=== PATIENT | male | born 2000 | race Hispanic/Latino ===

== ENCOUNTER 2024-04-06 00:45 | Emergency (ER) | payer BC ==
[~2024-04-06] VITALS: Ht 185.4 cm; Wt 111.1 kg
[2024-04-06] MEDS ORDERED: LIDOCAINE HCL 1% 20 ML VIAL ONE (01:36)
--- NOTE | 2024-04-06 01:45 | NUR ---
SPLINT APPLIED ORDRED
[2024-04-06] MEDS ORDERED: MELO-108 PO (02:17)
[2024-04-06] MEDS ORDERED: HYDR-4060 PO (02:17)
--- NOTE | 2024-04-06 02:19 | ERN ---
General Chief Complaint: Wrist Pain/Injury Stated Complaint: C/O PAIN TO RIGHT WRIST/HAND AFTER HITTING WALL Time Seen by MD: 00:53 History of Present Illness Initial Comments 23-year-old male otherwise healthy presents for right hand injury after hitting a wall. Obvious deformity 4th and 5th metacarpals otherwise no acute abnormalities. Allergies: Coded Allergies: No Known Allergies (Unverified Allergy, Unknown, 04/06/24) Home Meds Active Scripts Hydrocodone/Acetaminophen (Hydrocodon-Acetaminophen 5-325) 5 Mg-325 Mg Tablet, 1-2 TAB PO TIDP PRN for pain for 5 Days, #15 TAB 0 Refills Prov:MARI ROLLE DO 04/06/24 Meloxicam (Meloxicam) 15 Mg Tablet, 1 TAB PO DAILY for 10 Days, #10 TAB 0 Refills Prov:MARI ROLLE DO 04/06/24 Past Medical History Past Medical History: No Pertinent History Past Surgical History: None ROS Dictation CONSTITUTIONAL: No chills, no fever, no weakness, no diaphoresis, no malaise. HEAD/FACE: No signs of trauma. EENT: No eye pain, no blurred vision, no tearing, no double vision, no ear pain, no ear discharge, no nose pain, no nasal congestion, no throat pain, no throat swelling, no mouth pain. RESPIRATORY: No cough, no orthopnea, no SOB, no stridor, no wheezing. CARDIOVASCULAR: No chest pain, no edema, no palpitations, no syncope. GASTROINTESTINAL/ABDOMINAL: No abdominal pain, no constipation, no diarrhea, no nausea, no vomiting. GENITOURINARY: No abnormal discharge, no dysuria, no frequent urination, no hematuria. No complaints of pain in the genitals. MUSCULOSKELETAL: Right hand pain INTEGUMENTARY: No change in color, no change in hair/nails, no dryness, no lesion, no lumps, no rash. NEUROLOGICAL/PSYCH: No anxiety, not depressed, no emotional problem, no headache, no numbness, no pre-existing deficit, no history of seizures, no tremors, no weakness. HEMATOLOGIC/LYMPHATIC: Not anemic, no history of blood clots, no apparent bleeding, no bruising, glands not swollen. All Systems Negative, Except as Noted. Physical Exam Physical Exam Dictation VITAL SIGNS: Reviewed. GENERAL APPEARANCE: Alert, oriented x3, no acute distress HEAD AND FACE: Non-traumatic. EYES: PERRL, pink conjunctivas, eyelid no trauma, anterior chamber clear. EARS: Pinnas intact and no signs of trauma or erythema. Ear canals clear and no discharge. TMs no erythema. NOSE: No discharge, no bleeding. OROPHARYNX: Mouth normal, teeth no caries, tongue pink. Pharynx clear, no erythema. Tonsils no exudates, no abscesses noted. Mucous membrane moist. NECK: Supple, non-tender, no thyromegaly, no masses, no JVD, no bruits. BREAST: Deferred. CHEST: No tenderness, no crepitus, no paradoxical movement, no retractions. LUNGS: Clear, well-ventilated, symmetric, no rales, no wheezing, no rhonchi, no stridor, good breath sounds bilaterally. HEART: Regular rate, regular rhythm, no murmur, no gallops. VASCULAR: No peripheral edema. ABDOMEN: Soft, positive bowel sounds, nondistended, no guarding, nontender, no rebound, no masses no hepatomegaly, no splenomegaly, no Carson's sign, no hernias. RECTAL: Deferred. GENITAL: Deferred. NEUROLOGICAL: Normal speech, gross motor function intact, gross sensory function intact. MUSCULOSKELETAL: Neck nontender, full range of motion, back nontender, full range of motion. Obvious deformity right 4th and 5th digits, good capillary refill EXTREMITIES: Nontender, full range of motion. SKIN: Color pink, dry, no turgor, no rash, no lacerations, no abrasions, no contusions. LYMPHATICS: Deferred. MDM CC: Right hand pain status post punching a wall Historian: Patient Comorbidities: None Limitations by social determinants of health: Uninsured Differential diagnosis: Boxer's fracture, dislocation, other. Clinical exam shows neurovascularly intact hand, and no open injuries. Appears to be closed. Likely boxer's fracture with dislocation. Initial Hand x-ray per my independent interpretation shows a displaced comminuted fracture of the 4th metacarpal, and a 5th metacarpal dislocation. performed a digital block with lidocaine. I was able to reduce the 5th metacarpal joint. Placed in a ulnar gutter splint. Neurovascularly intact before and after. We will discharge with pain control and recommend orthopedic follow up. RIGHT HAND RADIOGRAPHS - 3 VIEWS INDICATION: Pain COMPARISON: None FINDINGS: AP, lateral, and oblique views. Displaced slightly comminuted transverse fracture through the proximal to mid fourth metacarpal shaft without joint subluxation at this level, but the fifth metacarpal bone is displaced dorsally in relationship to the hamate bone.. Scaphoid bone is intact. Carpal alignment and ulnar variance is within normal limits. No radiopaque foreign body noted. IMPRESSION: Displaced slightly comminuted transverse fracture through the proximal to mid fourth metacarpal shaft without joint subluxation at this level, but the fifth metacarpal bone is displaced dorsally in relationship to the hamate bone. REASON: pain/injury ORDERING PHYSICIAN: MARI ROLLE DO PROCEDURE: WRST 3V RT - WRIST COMP 3+VWS RT RIGHT WRIST RADIOGRAPHS - 3 VIEWS INDICATION: Pain COMPARISON: None FINDINGS: AP, lateral, and oblique views. Displaced slightly comminuted transverse fracture through the proximal to mid fourth metacarpal shaft without joint subluxation at this level, but the fifth metacarpal bone is displaced dorsally in relationship to the hamate bone. Scaphoid bone is intact. Chronic miniscule well-corticated ossific fragment near the pisiform as well as another slightly larger accessory ossicle or spur near the lunotriquetral articulation proximally. Ulnar variance is within normal limits. Carpal alignment is well maintained. No radiopaque foreign body noted. IMPRESSION: Displaced slightly comminuted transverse fracture through the proximal to mid fourth metacarpal shaft without joint subluxation at this level, but the fifth metacarpal bone is displaced dorsally in relationship to the hamate bone. REASON: post reduction ORDERING PHYSICIAN: MARI ROLLE DO PROCEDURE: HAND 3V RT - HAND 3+VWS RT RIGHT HAND RADIOGRAPHS - 3 VIEWS INDICATION: Postreduction imaging COMPARISON: None FINDINGS/IMPRESSION: Unchanged displaced slightly comminuted transverse fracture through the proximal to mid fourth metacarpal shaft without joint subluxation comment including successful reduction of fifth carpometacarpal joint malalignment. ED Course Orders Procedure Category Date Status Time Wrist Comp 3+Vws Rt RAD 04/06/24 Resulted 00:53 Hand 3+Vws Rt RAD 04/06/24 Resulted 00:53 Lidocaine Hcl 1% 20ml PHA 04/06/24 Complete Vial (Lidocaine Hc 01:36 Hand 3+Vws Rt RAD 04/06/24 Resulted 01:55 Current Medications Medications (Trade) Dose Ordered Sig/Tomas Route PRN Reason Start Time Stop Time Status Last Admin Dose Admin Lidocaine HCl (Lidocaine HCl 1% 20ml Vial) 20 ml STK-MED ONCE .ROUTE 04/06/24 01:36 04/06/24 01:37 DC Vital Signs Date Time Temp Pulse Resp B/P (MAP) Pulse Ox O2 Delivery O2 Flow Rate FiO2 04/06/24 02:45 98.2 79 18 136/80 98 Room Air* 0 21 04/06/24 00:58 98.1 82 18 107/85 97 Room Air* 0 21 04/06/24 00:49 98.1 92 20 163/94 98 Room Air Joint Reduction Joint Reduction : Reduction Attempts: 1 Pre-Procedure NV Exam: Yes Post-Procedure NV Exam: Yes post joint reduction film: joint reduced Progress Procedure: 5th metacarpal joint reduction Consent: Verbal per patient. I performed a digital block with good relief with the discomfort. I put anterior pressure onto the 5th metacarpal until it reduced. He was neurov ascularly intact before and after. Total attempts of one. Total time 2 minutes. No complications DX & DISP Disposition: Discharge Departure Impression: Primary Impression: Dislocation of metacarpal joint of right hand Additional Impression: Fracture of metacarpal of right hand, closed Condition: Stable Scripts Hydrocodone/Acetaminophen (Hydrocodon-Acetaminophen 5-325) 5 Mg-325 Mg Tablet 1-2 TAB PO TIDP PRN for pain for 5 Days, #15 TAB 0 Refills Prov: MARI ROLLE DO 04/06/24 Meloxicam (Meloxicam) 15 Mg Tablet 1 TAB PO DAILY for 10 Days, #10 TAB 0 Refills Prov: MARI ROLLE DO 04/06/24 Additional Instructions: You had two injuries, a dislocation of your 5th metacarpal, and a fracture of her 4th metacarpal. The dislocated joint was reduced in the ER. You were placed in the splint. Wear the splint until you are evaluated by an orthopedist. Be sure to elevate the hand frequently. I have prescribed meloxicam to take as needed for pain. You can take this once per day. Do not mix this medication with ibuprofen or naproxen. I have prescribed [place] tabs. You can take this up to 3 times a day as needed for pain. You will need to follow up with an orthopedist. I have given you a referral to Dr. Ann. Go to his office later this week for re-evaluation. Please return to the emergency department as needed. Referrals: SELF,REFERRAL (PCP) LACEY ANN MD, RYAN E DO Apr 06, 2024 02:19
[2024-04-06 02:45] VITALS: BP 136/80; PULSE 79; RESP 18; TEMP 98.2; O2SAT 98
--- NOTE | 2024-04-06 08:41 | HMCIMG ---
RIGHT HAND RADIOGRAPHS - 3 VIEWS INDICATION: Pain COMPARISON: None FINDINGS: AP, lateral, and oblique views. Displaced slightly comminuted transverse fracture through the proximal to mid fourth metacarpal shaft without joint subluxation at this level, but the fifth metacarpal bone is displaced dorsally in relationship to the hamate bone.. Scaphoid bone is intact. Carpal alignment and ulnar variance is within normal limits. No radiopaque foreign body noted. IMPRESSION: Displaced slightly comminuted transverse fracture through the proximal to mid fourth metacarpal shaft without joint subluxation at this level, but the fifth metacarpal bone is displaced dorsally in relationship to the hamate bone.
--- NOTE | 2024-04-06 08:41 | HMCIMG ---
RIGHT HAND RADIOGRAPHS - 3 VIEWS INDICATION: Postreduction imaging COMPARISON: None FINDINGS/IMPRESSION: Unchanged displaced slightly comminuted transverse fracture through the proximal to mid fourth metacarpal shaft without joint subluxation comment including successful reduction of fifth carpometacarpal joint malalignment.
--- NOTE | 2024-04-06 08:42 | HMCIMG ---
RIGHT WRIST RADIOGRAPHS - 3 VIEWS INDICATION: Pain COMPARISON: None FINDINGS: AP, lateral, and oblique views. Displaced slightly comminuted transverse fracture through the proximal to mid fourth metacarpal shaft without joint subluxation at this level, but the fifth metacarpal bone is displaced dorsally in relationship to the hamate bone. Scaphoid bone is intact. Chronic miniscule well-corticated ossific fragment near the pisiform as well as another slightly larger accessory ossicle or spur near the lunotriquetral articulation proximally. Ulnar variance is within normal limits. Carpal alignment is well maintained. No radiopaque foreign body noted. IMPRESSION: Displaced slightly comminuted transverse fracture through the proximal to mid fourth metacarpal shaft without joint subluxation at this level, but the fifth metacarpal bone is displaced dorsally in relationship to the hamate bone.
== END 2024-04-06 02:45 | disposition home or self-care (01) ==
LOC: EDH 00:45
DX: S63.064A Dislocation of metacarpal (bone), proximal end of right hand, initial encounter (principal); Z59.71 Insufficient health insurance coverage; Z79.1 Long term (current) use of non-steroidal anti-inflammatories (NSAID); W22.01XA Walked into wall, initial encounter; Y93.89 Activity, other specified; Y92.89 Other specified places as the place of occurrence of the external cause; Y99.8 Other external cause status
CPT/HCPCS: 26605; 26700; 73110; 73130; 99283